=== PATIENT | female | born 1960 | race Caucasian/White ===

== ENCOUNTER 2018-07-04 12:31 | Emergency (ER) | payer OTHER, MEDICARE ==
[2018-07-04 12:45] VITALS: BP 122/68
[2018-07-04] MEDS ORDERED: LIDOCAINE 5% (700 MG) TRANSDERMAL ADH..PATCH TP ONE (13:11)
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
[2018-07-04] MEDS ORDERED: LIDOCAINE 5% (700 MG) TRANSDERMAL ADH..PATCH ONE (14:29)
== END 2018-07-04 14:32 | disposition home or self-care (01) ==
LOC: ER 12:31
DX: M25.511 Pain in right shoulder (principal); R20.0 Anesthesia of skin; R20.2 Paresthesia of skin; M54.5 Low back pain; V43.52XA Car driver injured in collision with other type car in traffic accident, initial encounter; J44.9 Chronic obstructive pulmonary disease, unspecified; Z87.891 Personal history of nicotine dependence; Z88.1 Allergy status to other antibiotic agents
CPT/HCPCS: 72070; 72110; 99283

== ENCOUNTER 2019-03-23 12:33 | Emergency (ER) | payer MEDICARE, OTHER ==
[2019-03-23 12:38] VITALS: BP 122/50
[2019-03-23] MEDS ORDERED: IBUPROFEN 800 MG TABLET PO ONE (12:49)
--- NOTE | 2019-03-23 13:20 | ER Document Report ---
HPI - HPI Patient complains to provider of: Wrist injury Time Seen by Provider: 03/23/19 12:43 Onset: Yesterday Onset/Duration: Sudden Quality of pain: Achy Pain Level: 3 Context: She reports yesterday falling on outstretched hand injuring her right wrist. Patient denies any other injury. Exacerbated by: Movement Relieved by: Denies Similar symptoms previously: No Recently seen / treated by doctor: No - ROS ROS below otherwise negative: Yes Systems Reviewed and Negative: Yes All other systems reviewed and negative - NEURO Neurology: DENIES: Weakness - GASTROINTESTINAL Gastrointestinal: DENIES: Nausea - MUSCULOSKELETAL Musculoskeletal: REPORTS: Extremity pain - R wrist, Swelling - DERM Skin Color: Normal Skin Problems: None Past Medical History - General Information source: Patient - Social History Smoking Status: Current Every Day Smoker Smoking Education Provided: Yes Frequency of alcohol use: None Drug Abuse: None Occupation: none Lives with: Family Family History: Reviewed & Not Pertinent Patient has suicidal ideation: No Patient has homicidal ideation: No Pulmonary Medical History: Reports: Hx COPD Renal/ Medical History: Denies: Hx Peritoneal Dialysis Malignancy Medical History: Reports: Hx Breast Cancer GI Medical History: Reports: Hx Gastroesophageal Reflux Disease, Hx Hiatal Hernia Past Surgical History: Reports: Hx Cholecystectomy, Hx Hysterectomy Vertical Provider Document - CONSTITUTIONAL Agree With Documented VS: Yes Exam Limitations: No Limitations General Appearance: WD/WN, No Apparent Distress - INFECTION CONTROL TRAVEL OUTSIDE OF THE [place] IN LAST 30 DAYS: No - HEENT HEENT: Atraumatic, Normocephalic - NECK Neck: Normal Inspection - RESPIRATORY Respiratory: Breath Sounds Normal, No Respiratory Distress - CARDIOVASCULAR Cardiovascular: Regular Rate, Regular Rhythm Pulses: Normal: Radial - BACK Back: Normal Inspection - MUSCULOSKELETAL/EXTREMETIES Musculoskeletal/Extremeties: MAEW, FROM, Tender - Tenderness to distal right radius and ulna with 1+ edema, no obvious deformity or ecchymosis, no tenderness to hand, or right elbow., Edema. negative: Eccymosis - NEURO Level of Consciousness: Awake, Alert, Appropriate Motor/Sensory: No Motor Deficit, No Sensory Deficit - DERM Integumentary: Warm, Dry, No Rash Course - Vital Signs Vital signs: Temp Pulse Resp BP Pulse Ox 98 F 78 18 122/50 L 97 03/23/19 12:37 03/23/19 12:37 03/23/19 12:37 03/23/19 12:37 03/23/19 12:37 - Diagnostic Test Radiology reviewed: Image reviewed, Reports reviewed Procedures - Immobilization Right Wrist Pre-Proc Neuro Vasc Exam: Normal Immobilizer type: Cock-up Performed by: PCT Post-Proc Neuro Vasc Exam: Normal Alignment checked and good: Yes Discharge - Discharge Clinical Impression: Right wrist sprain Qualifiers: Encounter type: initial encounter Qualified Code(s): S63.501A - Unspecified sprain of right wrist, initial encounter Condition: Stable Disposition: HOME, SELF-CARE Instructions: Ice & Elevation ([facility]), Wrist Sprain ([facility]), Temporary Splint ([facility]) Additional Instructions: Return immediately for any new or worsening symptoms Followup with your primary care provider, call tomorrow to make a followup appointment Follow-up with orthopedics for any persistent pain or problems Prescriptions: Naproxen [Naprosyn 250 Nmg Tablet] 1 tab PO BID #14 tablet Forms: Smoking Cessation Education Referrals: SAM GARBER NP [Primary Care Provider] - Follow up as needed [facility] [Provider [facility]] - Follow up as needed
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
== END 2019-03-23 13:50 | disposition home or self-care (01) ==
LOC: ER 12:33
DX: S63.501A Unspecified sprain of right wrist, initial encounter (principal); W19.XXXA Unspecified fall, initial encounter; F17.200 Nicotine dependence, unspecified, uncomplicated; J44.9 Chronic obstructive pulmonary disease, unspecified; Z85.3 Personal history of malignant neoplasm of breast
CPT/HCPCS: 99283; 73110; L3908; A9270

== ENCOUNTER 2019-08-24 23:32 | Emergency (ER) | payer MEDICARE ==
[2019-08-24] MEDS ORDERED: NORMAL SALINE 1000 ML 1,000 ML IV ONE (23:52)
[2019-08-25 00:07] LABS: ABSOLUTE EOSINOPHILS # (AUTO) 0.1 10^3/uL (0.0-0.6); ABSOLUTE MONOCYTES (AUTO) 0.8 10^3/uL (0.1-1.4); ABSOLUTE NEUT (AUTO) 5.5 10^3/uL (1.7-8.2); BASOPHILS % (AUTO) 0.3 % (0-2); EOSINOPHILS % (AUTO) 1.7 % (0-6); HEMATOCRIT 38.9 % (36.0-47.0); HEMOGLOBIN 13.2 g/dL (12.0-15.5); MEAN CORPUSCULAR HEMOGLOBIN 29.8 pg (27.0-33.4); MEAN CORPUSCULAR VOLUME 88 fl (80-97); MONOCYTES % (AUTO) 8.9 % (3-13); PLATELET COUNT 145 10^3/uL (150-450); RED BLOOD COUNT 4.43 10^6/uL (3.72-5.28); RED CELL DISTRIBUTION WIDTH 12.9 % (11.5-14.0); SEGMENTED NEUTROPHILS % (AUTO) 65.1 % (42-78); TOTAL CELLS COUNTED % (AUTO) 100 %; WHITE BLOOD COUNT 8.5 10^3/uL (4.0-10.5)
--- NOTE | 2019-08-25 00:25 | ER Document Report ---
ED General - General Chief Complaint: Abdominal Pain Stated Complaint: ABDOMINAL PAIN Time Seen by Provider: 08/25/19 00:21 Primary Care Provider: SAM GARBER NP [NO LOCAL MD] - Follow up as needed TRAVEL OUTSIDE OF THE [place] IN LAST 30 DAYS: No - HPI Notes: 59-year-old female with a history of hypertension, asthma, COPD, GERD and breast cancer presents complaining of sudden onset 10 out of 10 abdominal pain with nausea and vomiting. Patient states she has been having diarrhea and abdominal cramping for several weeks. Patient states that she was seen at an outside faci lity earlier in the week for the same problem and had a CAT scan of her abdomen done. Patient states her symptoms became severe approximately 1 hour prior to arrival but since receiving Zofran and Benadryl from EMS patient states that she is getting relief of her symptoms. Patient states that she is feeling the pain from her rectum up into her chest. - Related Data Allergies/Adverse Reactions: metronidazole [From Flagyl] Allergy (Verified 03/23/19 12:34) morphine Adverse Reaction (Mild, Verified 03/23/19 12:34) Past Medical History - General Information source: Patient - Social History Smoking Status: Current Every Day Smoker Chew tobacco use (# tins/day): No Drug Abuse: None Family History: Reviewed & Not Pertinent Patient has suicidal ideation: No Patient has homicidal ideation: No Pulmonary Medical History: Reports: Hx COPD Renal/ Medical History: Denies: Hx Peritoneal Dialysis Malignancy Medical History: Reports: Hx Breast Cancer GI Medical History: Reports: Hx Gastroesophageal Reflux Disease, Hx Hiatal Hernia, Other - patient has a history of IBS D Past Surgical History: Reports: Hx Cholecystectomy, Hx Hysterectomy Review of Systems - Review of Systems Constitutional: No symptoms reported EENT: No symptoms reported Cardiovascular: No symptoms reported Respiratory: No symptoms reported Gastrointestinal: See HPI Genitourinary: No symptoms reported Female Genitourinary: No symptoms reported Musculoskeletal: No symptoms reported Skin: No symptoms reported Hematologic/Lymphatic: No symptoms reported Neurological/Psychological: No symptoms reported Physical Exam - Vital signs Vitals: Temp Resp 98.7 F 25 H 08/24/19 23:49 08/24/19 23:49 - Notes Notes: PHYSICAL EXAMINATION: GENERAL: Well-appearing, well-nourished and in no acute distress. HEAD: Atraumatic, normocephalic. EYES: Pupils equal round and reactive to light, extraocular movements intact, sclera anicteric, conjunctiva are normal. ENT: nares patent, oropharynx clear without exudates. Moist mucous membranes. NECK: Normal range of motion, supple without lymphadenopathy LUNGS: Breath sounds clear to auscultation bilaterally and equal. No wheezes rales or rhonchi. HEART: Regular rate and rhythm without murmurs ABDOMEN: Soft, nontender, normoactive bowel sounds. No guarding, no rebound. No masses appreciated. EXTREMITIES: Normal range of motion, no pitting or edema. No cyanosis. NEUROLOGICAL: No focal neurological deficits. Moves all extremities spontaneously and on command. PSYCH: Normal mood, normal affect. SKIN: Warm, Dry, normal turgor, no rashes or lesions noted. Course - Re-evaluation Re-evalutation: 08/25/19 04:53 Patient has gotten relief of pain with 1 dose of Nubain IV. Laboratory results, imaging, EKG findings discussed with patient and patient's family. Patient was informed that she has proximal constipation and will be given some magnesium citrate to go to help with her symptoms. Patient is instructed to follow-up with her PCP in 1 day. Differential diagnosis: Constipation, GERD, peptic ulcer disease, perforated peptic ulcer, pancreatitis, ACS Impression: 59-year-old female with a history of IBS D presents complaining of diarrheal stools and severe epigastric pain. Emergency department evaluation is significant for evidence of proximal constipation. Diagnosis: #1 proximal constipation #2 history of IBS D Plan: Discharge patient with information on constipation, discharge patient with bottle of mag citrate and instructions for use, patient instructed to follow-up with PCP in 1 day. Patient is to return to the emergency department at any time by calling 911 if she has worsening of symptoms despite using treatment as pr escribed. - Vital Signs Vital signs: Temp Pulse Resp BP Pulse Ox 98.7 F 9 L 92/56 L 92 08/24/19 23:49 08/25/19 04:01 08/25/19 04:01 08/25/19 04:01 - Laboratory Result Diagrams: 08/24/19 23:55 08/24/19 23:55 Laboratory results interpreted by me: 08/24/19 08/24/19 23:55 23:55 Plt Count 145 L Calcium 8.3 L AST 122 H Total Protein 5.7 L Albumin 3.3 L 08/25/19 04:57 Laboratory results reviewed by this MD - Diagnostic Test Radiology reviewed: Image reviewed, Reports reviewed - EKG Interpretation by Me Additional EKG results interpreted by me: 08/25/19 04:57 EKG done at 025 9 hours on 08/25/2019 was reviewed and interpreted by this MD. Findings: Sinus bradycardia with a rate of 54 P waves proceed QRS complexes, QRS complexes are narrow, there is no ST elevation or depression to suggest acute myocardial injury, axis is normal,. Impression sinus bradycardia with nonspecific ST segments. Discharge - Discharge Clinical Impression: Constipation Condition: Good Disposition: HOME, SELF-CARE Additional Instructions: Constipation Constipation is a common problem. It is especially likely as you get older. Constipation is a common cause of abdominal pain, but sometimes causes no symptoms at all. Causes of constipation include certain medications, dehydration, diets, inactivity, and low-fiber intake. Rarely, it can be a symptom of underlying disease. The physician has evaluated you for this. Avoid constipation by eating a diet high in fiber, fruits, and vegetables. Drink plenty of liquids. Get regular exercise. If possible, avoid constipating medicines like narcotic pain medication. Some vitamin tablets can cause constipation. Stool softeners may be needed for difficult cases. An excellent stool softener is Konsyl which is available at [employer] [employer] drug store. Just add a teaspoon to a glass of pineapple or orange juice daily or twice a day if needed. Laxatives are useful for occasional constipation. You should use them only when necessary. Too-frequent use can make your bowels dependent on them. Some over the counter laxatives available without prescription are: Milk of Magnesia, 1-2 tablespoons twice a day Dulcolax, 5 mg pill or 10 mg suppository. Citrate of Magnesia, 4-5 ounces a day for a day or two For acute constipation, Fleet's Enemas and Dulcolax suppositories are helpful. Chronic, halfway use of laxatives or enemas is not a good idea. Your bowel may become dependant on them. You do not need to have a bowel movement every day. Many people do fine with a bowel movement every three or four days. You should call your doctor or return for re-evaluation if you pass blood in the stool, or if you develop fever or increasing abdominal pain.Return to the Emergency Department without delay if any worse. Referrals: SAM GARBER NP [NO LOCAL MD] - Follow up tomorrow
[2019-08-25 00:42] LABS: ALBUMIN 3.3 g/dL (3.5-5.0); ANION GAP 5 (5-19); BILIRUBIN,DIRECT 0.2 mg/dL (0.0-0.4); BILIRUBIN,TOTAL 0.4 mg/dL (0.2-1.3); CARBON DIOXIDE 28 mmol/L (22-30); CHLORIDE 106 mmol/L (98-107); NEONATAL BILIRUBIN RESULT 0.2 mg/dL (0.1-1.1); POTASSIUM 3.6 mmol/L (3.6-5.0); TOTAL PROTEIN 5.7 g/dL (6.3-8.2)
[2019-08-25 00:55] LABS: ALKALINE PHOSPHATASE 54 U/L (38-126); ASPARTATE AMINO TRANSFERASE 122 U/L (14-36); BLOOD UREA NITROGEN 13 mg/dL (7-20); CALCIUM 8.3 mg/dL (8.4-10.2); GLUCOSE 100 mg/dL (75-110)
[2019-08-25] MEDS ORDERED: DICYCLOMINE HCL INJ 20 MG/2 ML AMPULE IM ONE (01:29)
[2019-08-25 01:40] LABS: APPEARANCE,URINE CLEAR; BILIRUBIN,URINE NEGATIVE (NEGATIVE); COLOR,URINE STRAW; GLUCOSE, URINE NEGATIVE (NEGATIVE); KETONES,URINE NEGATIVE (NEGATIVE); LEUKOCYTE ESTERASE,URINE NEGATIVE (NEGATIVE); NITRITE,URINE NEGATIVE (NEGATIVE); PROTEIN,URINE NEGATIVE (NEGATIVE); URINE SPECIFIC GRAVITY 1.004; UROBILINOGEN,URINE NEGATIVE mg/dL (<2.0)
[2019-08-25] MEDS ORDERED: NALBUPHINE HCL INJ 10 MG/1 ML AMPULE INJ ONE (02:49)
--- NOTE | 2019-08-25 03:31 | RADIOLOGY REPORT (SQ) ---
CLINICAL HISTORY: epigastric pain COMPARISON: None. TECHNIQUE: XR ABDOMEN 1 VIEW (KUB) 08/25/2019 2:55 AM CDT FINDINGS: There is moderate amount of stool in the colon. There are no abnormal radiopaque foreign bodies or abnormal calcifications. Osseous structures are grossly unremarkable. Cholecystectomy was performed. IMPRESSION: Proximal constipation.
--- NOTE | 2019-08-25 03:31 | RADIOLOGY REPORT (SQ) ---
CLINICAL HISTORY: epigastric pain COMPARISON: None. TECHNIQUE: XR CHEST 1 VIEW 08/25/2019 2:54 AM CDT FINDINGS: Cardiac silhouette is normal in size. Lungs are clear without consolidation, atelectasis, mass or edema. There is no pleural effusion. There is no pneumothorax. There are no acute osseous findings. IMPRESSION: Clear lungs.
[2019-08-25] MEDS ORDERED: MAGNESIUM CITRATE 296 ML BOTTLE PO ONE (04:48)
[2019-08-25 05:24] VITALS: BP 102/48
--- NOTE | 2019-08-25 06:28 | EKG REPORT ---
SEVERITY:- OTHERWISE NORMAL ECG - SINUS BRADYCARDIA : Confirmed by: Andrew Mcrae MD 25-Aug-2019 06:27:42
== END 2019-08-25 05:24 | disposition home or self-care (01) ==
LOC: ER 23:32
DX: K59.00 Constipation, unspecified (principal); R10.13 Epigastric pain; R11.2 Nausea with vomiting, unspecified; R19.7 Diarrhea, unspecified; R00.1 Bradycardia, unspecified; J44.9 Chronic obstructive pulmonary disease, unspecified; I10 Essential (primary) hypertension; F17.200 Nicotine dependence, unspecified, uncomplicated; Z87.19 Personal history of other diseases of the digestive system; Z85.3 Personal history of malignant neoplasm of breast; Z88.1 Allergy status to other antibiotic agents
CPT/HCPCS: 93005; 36415; 83690; 85025; 80053; 81001; 84484; 71045; 74018; 93010; J3490; J0500; J2300; J7030; 96360; 96372; 99284